=== PATIENT | female | born 1970 | race Caucasian/White ===

== ENCOUNTER 2019-12-12 20:30 | Emergency (ER) | payer BC ==
[~2019-12-12] VITALS: Ht 170.2 cm; Wt 64.4 kg
--- NOTE | 2019-12-12 20:45 | NUR ---
at bedside for MSE and treatment.
--- NOTE | 2019-12-12 21:05 | NUR ---
Patient discharged to home in stable condition. Written and verbal after care instructions given. Patient verbalizes understanding of instructions. Stressed follow up or return to ER for worsening s/s. Ambulated out of ER in steady gait.
[2019-12-12 21:15] VITALS: BP 130/90
== END 2019-12-12 21:05 | disposition home or self-care (01) ==
LOC: ER 20:32
DX: S61.210A Laceration without foreign body of right index finger without damage to nail, initial encounter (principal); W26.0XXA Contact with knife, initial encounter; Y92.89 Other specified places as the place of occurrence of the external cause
CPT/HCPCS: 12001; 99282; J3490; A4663